=== PATIENT | male | born 1975 | race Caucasian/White ===

== ENCOUNTER 2017-01-26 10:23 | Emergency (ER) | payer SELFPAY ==
[~2017-01-26] VITALS: Ht 167.6 cm; Wt 60.0 kg
[2017-01-26 10:32] VITALS: Ht 167.6 cm; Wt 60.0 kg
[2017-01-26] MEDS ORDERED: SOD CHLORIDE 0.9% 1,000 ML IV STA (12:29)
[2017-01-26] MEDS ORDERED: ONDANSETRON 4 MG INJ IV STA (12:29)
[2017-01-26] MEDS ORDERED: HYDROCODONE/APAP (5/325) TAB PO ONE (12:30)
[2017-01-26 13:33] LABS: ADD SCAN DIFF NO
[2017-01-26 13:41] LABS: ADD UMIC YES; URINE BILIRUBIN (Dip) NEGATIVE (NEGATIVE); URINE BLOOD (Dip) NEGATIVE (NEGATIVE); URINE COLOR LT. YELLOW (YELLOW); URINE KETONES (Dip) NEGATIVE (NEGATIVE); URINE LEUKOCYTE ESTERASE (Dip) TRACE (NEGATIVE); URINE NITRITE (Dip) NEGATIVE (NEGATIVE); URINE TOTAL PROTEIN (Dip) NEGATIVE (NEGATIVE); URINE UROBILINOGEN (Dip) 4.0 E.U./dL (0.1-1.0)
[2017-01-26 13:44] LABS: ABNORMAL IP MESSAGE 1; HEMATOCRIT 43.2 % (42.0-52.0); HEMOGLOBIN 14.6 g/dl (14.0-18.0); MEAN CORPUSCULAR HEMOGLOBIN 30.2 pg (29.0-33.0); MEAN CORPUSCULAR HGB CONC 33.8 g/dl (32.0-37.0); MEAN CORPUSCULAR VOLUME 89.4 fl (82.0-101.0); MEAN PLATELET VOLUME 11.8 fl (7.4-10.4); PLATELET COUNT 249 10^3/UL (140-415); RED BLOOD COUNT 4.83 10^6/ul (4.70-6.10)
[2017-01-26 13:54] LABS: BACTERIA,URINE FEW; URINE RBCS 0-2 /HPF (0)
[2017-01-26 14:53] LABS: ALBUMIN 3.9 g/dl (3.3-4.9); POTASSIUM 3.9 mmol/L (3.5-5.1)
[2017-01-26 14:55] LABS: BILIRUBIN,INDIRECT 0.9 mg/dl (0-1.1); BILIRUBIN,TOTAL 0.9 mg/dl (0.2-1.3); CREATININE 0.84 mg/dl (0.61-1.24)
[2017-01-26 14:56] LABS: ALBUMIN/GLOBULIN RATIO 1.05; CALCIUM 9.1 mg/dl (8.4-10.2); TOTAL PROTEIN 7.6 g/dl (6.1-8.1)
[2017-01-26 15:27] LABS: BASOPHIL # 0.2 10^3/ul (0.0-0.1); LYMPHOCYTES # 1.3 10^3/ul (0.8-2.9); MONOCYTE # 2.1 10^3/ul (0.3-0.9); NEUTROPHIL # 14.1 10^3/ul (1.6-7.5)
[2017-01-26] MEDS ORDERED: SOD CHLORIDE 0.9% 1,860 ML IV ONE (16:30)
[2017-01-26] MEDS ORDERED: ACETAMINOPHEN 1000MG/100ML IV 100 ML IVPB ONE (16:30)
--- NOTE | 2017-01-26 16:33 | ERD ---
ER Documentation Chief Complaint Date/Time DATE: 01/26/17 TIME: 16:27 Chief Complaint ap w/body aches x6 days HPI Patient is a 41-year-old male who presents to the ED with multiple complaints. He states that for the last week he has had body aches, chills, abdominal pain, nausea, runny nose, productive cough. He states that he developed these symptoms over 1 week ago. He denies shortness of breath, difficulty breathing, chest pain. He denies hemoptysis, night sweats. He denies fever or chills. He denies dizziness. He denies constipation or diarrhea. He states that his last bowel movement was today. He states that he is nervous about being at the hospital, since he has never seen a doctor before and does not like coming to hospitals. He denies any injuries. He denies leg pain or swelling. Denies recent surgeries. He states that he currently drinks 2-3 beers per day, smokes 4 cigarettes a day. 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 He has not taken any medication for his symptoms. He states that he is not sexually active. No other complaints. ROS All systems reviewed and are negative except as per history of present illness. Medications Home Meds Active Scripts Acetaminophen* (Tylophen*) 500 Mg Capsule, 1 CAP PO Q6H Y for PAIN AND OR ELEVATED TEMP, #20 CAP Prov:JAZ SALAMANCA PA-C 01/26/17 Allergies Allergies: Coded Allergies: No Known Allergy (Unverified , 01/26/17) PMhx/Soc Medical and Surgical Hx: pt denies Medical Hx, pt denies Surgical Hx History of Surgery: No Anesthesia Reaction: No Hx Neurological Disorder: No Hx Respiratory Disorders: No Hx Cardiac Disorders: No Hx Psychiatric Problems: No Hx Miscellaneous Medical Probl: No Hx Alcohol Use: Yes (1-2/beers per day x6 years ) Hx Substance Use: Yes (hx of crystal meth, denies current use) Hx Tobacco Use: Yes (4 cigarettes/day) Smoking Status: Never smoker FmHx Family History: No coronary disease, No diabetes, No other Physical Exam Vitals Vital Signs Date Time Temp Pulse Resp B/P Pulse Ox O2 Delivery O2 Flow Rate FiO2 01/26/17 18:06 99.7 106 20 95/51 96 Room Air 01/26/17 16:16 103.1 116 22 113/64 98 Room Air 01/26/17 10:32 99.4 131 18 131/85 100 Physical Exam GENERAL: Well-developed, well-nourished male. Appears in mild distress. HEAD: Normocephalic, atraumatic. EYES: Pupils are equally reactive bilaterally. EOMs grossly intact. No conjunctival erythema. ENT: Moist mucous membranes. No uvula deviation. No kissing tonsils. No exudates. NECK: Supple. No lymphadenopathy or thyromegaly. No meningismus. negative kernig. negative brudinski. LUNG: Clear to auscultation bilaterally. No rhonchi, wheezing, rales or coarse breath sounds. No signs of respiratory distress. Speaking in full sentences. HEART: Regular rate and rhythm. No murmurs, rubs or gallops. ABDOMEN: No scars, ecchymosis or rashes noted. Soft, nontender, and nondistended. Positive bowel sounds in all four quadrants. No rebound tenderness , no guarding. (-) McBurneys point tenderness. No CVA tenderness. BACK: No midline tenderness. Extremities: Equal pulses bilaterally. No peripheral clubbing, cyanosis or edema. No unilateral leg swelling. NEUROLOGIC: Alert and oriented. Moving all four extremities. 5/5 strength in all extremities. Normal speech. Steady gait. SKIN: Normal color. Warm and dry. No rashes or lesions. Capillary refill < 2 seconds Result Diagram: 01/26/17 1310 01/26/17 1310 Results 24 hrs Laboratory Tests Test 01/26/17 13:10 01/26/17 16:25 Alanine Aminotransferase (ALT/SGPT) 77IU/L Albumin 3.9g/dl Albumin/Globulin Ratio 1.05 Alkaline Phosphatase 182IU/L Anion Gap 20 Aspartate Amino Transf (AST/SGOT) 74IU/L Band Neutrophils % 16.0% Basophils # 0.210^3/ul Basophils % 1.0% Blood Urea Nitrogen 8mg/dl Calcium Level 9.1mg/dl Carbon Dioxide Level 30mmol/L Chloride Level 95mmol/L Creatinine 0.84mg/dl Direct Bilirubin 0.00mg/dl Eosinophils # 10^3/ul Eosinophils % % Globulin 3.70g/dl Glucose Level 117mg/dl Hematocrit 43.2% Hemoglobin 14.6g/dl Indirect Bilirubin 0.9mg/dl Lipase 63U/L Lymphocytes # 1.310^3/ul Lymphocytes % 6.0% Mean Corpuscular Hemoglobin 30.2pg Mean Corpuscular Hemoglobin Concent 33.8g/dl Mean Corpuscular Volume 89.4fl Mean Platelet Volume 11.8fl Monocytes # 2.110^3/ul Monocytes % 10.0% Neutrophils # 14.110^3/ul Neutrophils % 67.0% Nucleated Red Blood Cells # 10^3/ul Nucleated Red Blood Cells % /100WBC Platelet Count 72714^3/UL Potassium Level 3.9mmol/L Red Blood Count 4.8310^6/ul Red Cell Distribution Width 12.0% Sodium Level 141mmol/L Total Bilirubin 0.9mg/dl Total Protein 7.6g/dl Urine Amphetamines Screen Negative Urine Bacteria FEW Urine Barbiturates Negative Urine Benzodiazepines Screen Negative Urine Bilirubin NEGATIVE Urine Cannabinoids Negative Urine Clarity CLEAR Urine Cocaine Screen Negative Urine Color LT. YELLOW Urine Epithelial Cells RARE Urine Glucose 0.5%% Urine Hemoglobin NEGATIVE Urine Ketones NEGATIVE Urine Leukocyte Esterase TRACE Urine Microscopic RBC 0-2/HPF Urine Microscopic WBC 5-10/HPF Urine Nitrite NEGATIVE Urine Opiates Screen Negative Urine Specific [place] 1.010 Urine Total Protein NEGATIVE Urine Urobilinogen 4.0 E.U./dL Urine pH 7.0 White Blood Count 21.010^3/ul Activated Partial Thromboplast Time 36.7Sec INR International Normalized Ratio 1.34 Lactic Acid Level 1.5mmol/L Prothrombin Time 16.7Sec Prothrombin Time Ratio 1.3 Troponin I < 0.012ng/ml Current Medications Medications (Trade) Dose Ordered Sig/Larry Route PRN Reason Start Time Stop Time Status Last Admin Dose Admin Sodium Chloride (NS) 1,000 ml @ 1,000 mls/hr Q1H STAT IV 01/26/17 12:29 01/26/17 13:28 DC 01/26/17 12:58 Ondansetron HCl (Zofran Inj) 4 mg ONCE STAT IV 01/26/17 12:29 01/26/17 12:31 DC 01/26/17 12:58 Acetaminophen/ Hydrocodone Bitart 1 tab 1 tab ONCE ONCE PO 01/26/17 12:30 01/26/17 12:31 DC 01/26/17 12:58 Acetaminophen 100 ml @ 400 mls/hr ONCE ONCE IVPB 01/26/17 16:30 01/26/17 16:44 DC 01/26/17 16:58 Sodium Chloride (NS) 1,860 ml @ 1,860 mls/hr BOLUS X1 ONCE IV 01/26/17 16:30 01/26/17 17:29 DC 01/26/17 16:47 Procedures/MDM ER COURSE: I kept the patient and/or family informed of laboratory and diagnostic imaging results throughout the emergency room course. EKG, MONITORS, & DIAGNOSTIC IMAGING: EKG performed, read by Dr Hui 126 bpm, sinus tachycardia normal axis, no acute ST segment changes, no T wave inversion MEDICATIONS: IV fluids. Zofran. Mcleod. Tylenol. Tolerated well with no adverse reaction MEDICAL DECISION MAKING: This is a 41-year-old male who presents with multiple complaints for 1 week. Vital signs were reviewed. Patient is afebrile. Patient is not hypoxic. At time of intake, patient had a temperature of 99.4 with a pulse of 131. Patient does not have any abdominal pain on examiantion or CVA tenderness. After administration of 1 L of fluids, Zofran, Mcleod. Patient stated he felt much better and his body aches, chills and headache were diminished. I consulted with Dr. Beck regarding this patient and vitals were rechecked. His temperature increased to 103.1, respiratory rate 22 with a pulse of 116. Septic workup was ordered as well as urine drug screen. Urine drug screen was negative. His CBC showed elevated white count of 20.1 with no neutrophil shift. He did have elvated transmanises which is likely related to his alcohol intake as he has been drinking chronically for greater than 6 years. He does not have an elevated lipase. His lactic acid is within normal limits. He does have elevated PT and APTT which is likely related to his liver and alcohol intake. His urine shows trace leukocytes, with no nitrites or hematuria. His cxr as read by radiologist is unremarkable. He is influenza A/B negative. I discussed all lab findings and xray results with Dr. Beck who also reviewed laboratory studies and imaging studies. Dr. Beck came to examine patient at bedside and agrees that patient can be treated outpatiently. Patient did not have abdominal pain on exmiantion and CN 2-12 intact. He likely has a viral syndrome. Low suspicion for ACS, PE, AAA, dissection, DVT. Low suspicion for pneumonia, PE, pneumothorax, ACS, epiglottitis, obstruction, TB, pertussis, meningitis, sepsis.Low suspicion for ACS, AAA, perforated ulcer, bowel obstruction, cholecystitis, choledocholithiasis, cholangitis, pancreatitis, hepatic abscess, appendicitis, diverticulitis, gastroenteritis, hepatitis, peptic ulcer disease, HELLP syndrome. Patient abdominal exam is within normal limits. His elevated white count is likely related to stress reaction and viral syndrome. His tachycardia, temperature and respiratory rate markedly diminished after administration of tylenol and fluids. Patient was stable and ready to go home. Patient stated he was hungry and wanted to leave to get food and to go home. He understood plan and had no new complaints. DISCHARGE: At this time, patient is stable for discharge and outpatient management with no new complaints during the ER course. Patient was sent home with tylenol. Patient will be discharged home with instructions to recheck for new or worsening symptoms such as fever, nausea, weakness, LOC and to follow up with primary care in the next 1-2 days. Patient was advised to return to the ER for any new or worsening symptoms. Plan was discussed and patient and/or family understands and agrees. Home instructions were given. Departure Diagnosis: Primary Impression: Viral syndrome Condition: Stable JAZ SALAMANCA PA-C Jan 26, 2017 16:33
[2017-01-26 17:18] LABS: BARBITURATES Negative (NEGATIVE); BENZODIAZEPINES Negative (NEGATIVE); CANNABINOIDS Negative (NEGATIVE); COCAINE Negative (NEGATIVE); OPIATES Negative (NEGATIVE)
[2017-01-26 17:30] LABS: INR 1.34; PROTIME 16.7 Sec (12.2-14.2); PT RATIO 1.3
[2017-01-26 17:31] LABS: PARTIAL THROMBOPLASTIN TIME 36.7 Sec (25.0-35.0)
--- NOTE | 2017-01-26 18:01 | RADRPT ---
PROCEDURE: XR Chest. CLINICAL INDICATION: Cough. TECHNIQUE: Single frontal view. COMPARISON: None. FINDINGS: The lungs are clear. The heart size is normal. There is no pleural effusion. There is no pneumothorax. IMPRESSION: 1. Normal chest radiograph. RPTAT: QQ .Jarrod Belle MD, Date Time Electronically viewed and signed by .Jarrod Belle MD, on 01/26/2017 18:01 .R/
[2017-01-26 18:06] VITALS: BP 95/51; PULSE 106; RESP 20; TEMP 99.7
[2017-01-26] MEDS ORDERED: ACET500C5 PO (18:16)
== END 2017-01-26 18:38 | disposition home or self-care (01) ==
LOC: FTE 10:23
DX: B34.9 Viral infection, unspecified (principal); R11.0 Nausea; F17.210 Nicotine dependence, cigarettes, uncomplicated
CPT/HCPCS: 36415; 71010; 80053; 80307; 81001; 83605; 83690; 84484; 85025; 85610; 85730; 87040; 87086; 87400; 93005; 96361; 96374; 96375; 99285; J0131; J2405; J7030; 81003